=== PATIENT | female | born 1955 | race Caucasian/White ===

== ENCOUNTER 2021-03-16 13:01 | Outpatient (CLI) | payer MEDICARE, OTHER | END 2021-03-16 13:02 | disposition home or self-care (01) | LOC: CSHMAMMO 13:01 | PROVIDERS: ATTEND Family Medicine | DX: Z12.31 Encounter for screening mammogram for malignant neoplasm of breast (principal); Z91.89 Other specified personal risk factors, not elsewhere classified; Z98.890 Other specified postprocedural states | CPT/HCPCS: 77063; 77067 ==

== ENCOUNTER 2023-10-31 08:34 | Outpatient (CLI) | payer MEDICARE, OTHER | END 2023-10-31 08:35 | disposition home or self-care (01) | LOC: CSHRAD 08:34 | PROVIDERS: ATTEND Specialist | DX: E66.01 Morbid (severe) obesity due to excess calories (principal); Z98.84 Bariatric surgery status | CPT/HCPCS: 36415; 74246; 80053; 80061; 82306; 83036; 83540; 83970; 84425; 85025 ==

== ENCOUNTER 2024-04-16 12:05 | Outpatient (CLI) | payer MEDICARE, OTHER ==
[2024-04-16 14:05] LABS: Hematocrit 38.9 % (34.9-44.5); Hemoglobin 12.4 g/dL (12.0-15.5); Mean Corpuscular HGB CONC 31.9 g/dL (32.0-36.0); Mean Corpuscular Hemoglobin 28.6 pg (27.0-33.0); Mean Corpuscular Volume 89.6 fL (81.6-98.3); Mean Platelet Volume 9.9 fL (7.4-10.4); Platelet Count 151 10x3/uL (150-450); RBC Distribution Width 15.7 % (11.5-14.5); Red Blood Cell (RBC) Count 4.34 10x6/uL (3.90-5.03); White Blood Cell (WBC) Count 5.61 10x3/uL (3.5-10.5)
[2024-04-16 14:19] LABS: Anion Gap 18 mmol/L (10-20); BUN (Urea Nitrogen) 19 mg/dL (9.8-20.1); Calc. Creatinine Clearance 0 mL/min (70-130); Calcium 9.9 mg/dL (7.8-10.44); Carbon Dioxide 23 mmol/L (23-31); Chloride 104 mmol/L (98-107); Estimated GFR 88; Glucose 88 mg/dL (80-115); Potassium 3.9 mmol/L (3.5-5.1); Sodium 141 mmol/L (136-145)
== END 2024-04-16 12:06 | disposition home or self-care (01) ==
LOC: CSHLAB 12:05
PROVIDERS: ATTEND Specialist
DX: Z01.818 Encounter for other preprocedural examination (principal)
CPT/HCPCS: 80048; 85027; 93005; 93010

== ENCOUNTER → 2024-04-21 | Day surgery (SDC) | payer MEDICARE, OTHER ==
[2024-04-16 12:25] VITALS: BMI 23.7
[~2024-04-21] MED LIST: Acetaminophen 500 MG TAB ONE; Bupivacaine/Epinephrine 0.25% 30 ML VIAL ONE; CEFAZOLIN 1 GM VIAL ONE; Dexamethasone 20 MG/5 ML VIAL ONE; Fentanyl 100 MCG/2 ML VIAL ONE; Fentanyl 250 MCG/5 ML VIAL ONE; Ketorolac Tromethamine 30 MG (1 mL) VIAL ONE; Lidocaine 1% PF 5 ML VIAL ONE; Midazolam HCl 2 mg/2 ml Vial ONE; PROPOFOL 20 ML ONE; Phenylephrine 40 MG/NS 250 ML 250 ML ONE; Rocuronium Bromide 10 MG/ML (10ML VIAL) ONE; SUGAMMADEX SODIUM 200 MG/2 ML VIAL ONE
== END ==
LOC: CSHSDC 09:56
PROVIDERS: ATTEND Specialist
PROC: 0JB80ZZ Excision of Abdomen Subcutaneous Tissue and Fascia, Open Approach (ICD-10-PCS; principal; 2024-04-21)
DX: M79.3 Panniculitis, unspecified (principal); M48.02 Spinal stenosis, cervical region; G47.33 Obstructive sleep apnea (adult) (pediatric); K43.9 Ventral hernia without obstruction or gangrene; E66.01 Morbid (severe) obesity due to excess calories; Z68.23 Body mass index [BMI] 23.0-23.9, adult; Z98.84 Bariatric surgery status; Z86.73 Personal history of transient ischemic attack (TIA), and cerebral infarction without residual deficits; Z90.49 Acquired absence of other specified parts of digestive tract; Z90.710 Acquired absence of both cervix and uterus; Z88.8 Allergy status to other drugs, medicaments and biological substances; Z88.1 Allergy status to other antibiotic agents; Z88.2 Allergy status to sulfonamides; Z79.899 Other long term (current) drug therapy
CPT/HCPCS: 15830; 71045; A6258; J0690; J1100; J1885; J2250; J2704; J3010 ×2; 88305

== ENCOUNTER 2024-12-23 19:13 | Inpatient (IN) | payer MEDICARE, OTHER ==
[2024-12-23] MEDS ORDERED: Albuterol 2.5 MG (3 mL) NEB ONE (20:21)
[2024-12-23] MEDS ORDERED: Acetaminophen 500 MG TAB ONE (20:44)
[2024-12-23] MEDS ORDERED: cefTRIAXone (ROCEPHIN) 1 GM VIAL ONE (20:45)
[2024-12-23 21:06] LABS: #Basophils Less than 0.03 10x3/uL (0.0-0.2); #Eosinophils 0.12 10x3/uL (0.0-0.5); #Monocytes 0.22 10x3/uL (0.0-1.1); #Neutrophils 3.98 10x3/uL (1.5-8.4); %Basophils 0.2 % (0.0-2.0); %Eosinophils 2.6 % (0.0-6.0); %Lymphocytes 6.8 % (18.0-47.0); %Monocytes 4.7 % (0.0-10.0); %Neutrophils 85.1 % (40.0-75.0); Hematocrit 32.4 % (34.9-44.5); Hemoglobin 10.9 g/dL (12.0-15.5); Mean Corpuscular Hemoglobin 28.8 pg (27.0-33.0); Mean Corpuscular Volume 85.7 fL (81.6-98.3); Platelet Count 92 10x3/uL (150-450); Red Blood Cell (RBC) Count 3.78 10x6/uL (3.90-5.03); White Blood Cell (WBC) Count 4.68 10x3/uL (3.5-10.5)
[2024-12-23 21:24] LABS: ALT (SGPT) 38 U/L (Less than 34); AST (SGOT) 52 U/L (11-34); Albumin 3.2 g/dL (3.1-4.5); Alkaline Phosphatase 74 U/L (40-110); Anion Gap 13 mmol/L (10-20); BUN (Urea Nitrogen) 23 mg/dL (9.8-20.1); Bilirubin, Total 0.6 mg/dL (0.3-1.2); Calc. Creatinine Clearance 0 mL/min (70-130); Calcium 8.5 mg/dL (7.8-10.44); Carbon Dioxide 21 mmol/L (23-31); Chloride 106 mmol/L (98-107); Globulin 3.0 g/dL (2.4-3.5); Glucose 165 mg/dL (83-110); Potassium 3.5 mmol/L (3.5-5.1); Sodium 136 mmol/L (136-145)
[2024-12-23 21:28] LABS: Troponin I Less than 0.010 ng/mL (< 0.028)
[2024-12-23 21:39] LABS: Platelet Adequacy Comment Appears Decreased; RBC Morphology Within Normal Limits
[2024-12-23 22:06] LABS: Glucose, Urine (Dipstick) Normal (Negative); Leukocyte Negative (Negative); Protein, Urine (Dipstick) 100 mg/dl (Neg-Trace); Specific Gravity, Urine 1.015 (1.005-1.030)
[2024-12-23 22:24] LABS: Bacteria/HPF None Seen HPF (None Seen); CAUTI Indications for Culture Alt mental st,lethar; RBC/HPF 0-3 HPF (0-3); WBC/HPF None Seen HPF (0-3)
[2024-12-23 22:25] LABS: Urine Culture Reflex No No
[2024-12-23 22:38] LABS: ALV-art Gradient 88.415 mmHg (0-20); Actual Bicarbonate (HCO3a) 19.1 mEq/L (22-28); Analyzer IN Cardio CS ER; Base Excess (BEa) -4.1 mEq/L (-2.0 to +3.0); CO2 Tension 29.3 mmHg (35.0-45.0); Calcium, Ionized (arterial) 1.16 mmol/L (1.12-1.30); Critical Notified By: CP.PH; Hematocrit-ABG 34 % (36.0-47.0); Hemoglobin (Hb) 11.6 g/dL (12.0-16.0); O2 Tension (PaO2), arterial 74.6 mmHg (> 70.0); Potassium - ABG Lab 3.44 mmol/L (3.70-5.30); Puncture Site Right Radial artery; RapidComm Collect By CP.PH; pH, Arterial 7.433 (7.35-7.45)
[2024-12-23] MEDS ORDERED: Albuterol 200 PUFF (6.7GM INHALER) INH PRN (22:41)
[2024-12-23] MEDS ORDERED: Acetaminophen 325 MG TAB PO PRN (22:41)
[2024-12-24] MEDS: cefTRIAXone\\ROCEPHIN 1 GM in Sodium Chloride 0.9% 100 ML IVPB SCH (00:07)
[2024-12-24] MEDS: Aspirin 81 mg Enteric Coated Tablet PO SCH ×2 (00:07→10:18)
[2024-12-24 00:13] LABS: Hematocrit 30.8 % (34.9-44.5); Hemoglobin 10.1 g/dL (12.0-15.5); Mean Corpuscular Hemoglobin 28.9 pg (27.0-33.0); Mean Corpuscular Volume 88.3 fL (81.6-98.3); Platelet Count 72 10x3/uL (150-450); Red Blood Cell (RBC) Count 3.49 10x6/uL (3.90-5.03); White Blood Cell (WBC) Count 3.99 10x3/uL (3.5-10.5)
[2024-12-24 00:15] LABS: MDiff Complete? YES; Platelet Adequacy Comment Appears Decreased; RBC Morphology Within Normal Limits
[2024-12-24 00:19] LABS: Anion Gap 9 mmol/L (10-20); BUN (Urea Nitrogen) 21 mg/dL (9.8-20.1); Calc. Creatinine Clearance 0 mL/min (70-130); Calcium 7.8 mg/dL (7.8-10.44); Carbon Dioxide 20 mmol/L (23-31); Chloride 109 mmol/L (98-107); Glucose 178 mg/dL (83-110); Magnesium 1.4 mg/dL (1.6-2.6); Potassium 3.2 mmol/L (3.5-5.1)
[2024-12-24 00:30] LABS: Sodium 135 mmol/L (136-145)
[2024-12-24] MEDS: REMDESIVIR 200 MG in Sodium Chloride 0.9% 250 ML 210 ML IV SCH (00:54)
[2024-12-24 01:06] VITALS: BMI 21.2
[2024-12-24] MEDS ORDERED: FLU (Fluad Triv) 25-26 (65UP)PF 45 MCG/0.5 ML Syringe IM ONE ×2 (01:30→09:00)
[2024-12-24] MEDS ORDERED: PNEUMOC 20-VAL CONJ-DIP CRM/PF 0.5 ML SYRINGE IM ONE ×2 (01:30→09:00)
[2024-12-24] MEDS: HYDROcodone/Acetaminophen 5/325 mg Tablet PO PRN (01:32)
[2024-12-24] MEDS: Benzonatate 100 MG CAP PO PRN (02:27)
[2024-12-24] MEDS: Azithromycin 500 MG in Sodium Chloride 0.9% 250 ML 250 ML IVPB SCH (02:27)
[2024-12-24] MEDS ORDERED: Acetaminophen 325 MG TAB PO PRN (04:19)
[2024-12-24] MEDS: Magnesium 2 GM/50 ML(in water) 2 GM in Premix 1 BAG IVPB SCH (05:06)
[2024-12-24] MEDS: oxyCODONE 5 MG TAB PO PRN (06:25)
[2024-12-24 07:41] LABS: Hematocrit 31.9 % (34.9-44.5); Hemoglobin 10.1 g/dL (12.0-15.5); Mean Corpuscular Hemoglobin 28.6 pg (27.0-33.0); Mean Corpuscular Volume 90.4 fL (81.6-98.3); Platelet Count 75 10x3/uL (150-450); Red Blood Cell (RBC) Count 3.53 10x6/uL (3.90-5.03); White Blood Cell (WBC) Count 4.77 10x3/uL (3.5-10.5)
[2024-12-24 07:59] LABS: INR-International Normal Ratio 1.6; PTT 29.5 sec (22.0-33.0); Prothrombin Time 16.0 sec (9.5-12.1)
[2024-12-24 08:00] LABS: Anion Gap 11 mmol/L (10-20); BUN (Urea Nitrogen) 20 mg/dL (9.8-20.1); Calc. Creatinine Clearance 67 mL/min (70-130); Calcium 8.1 mg/dL (7.8-10.44); Carbon Dioxide 19 mmol/L (23-31); Chloride 113 mmol/L (98-107); Glucose 203 mg/dL (83-110); Magnesium 2.2 mg/dL (1.6-2.6); Potassium 4.1 mmol/L (3.5-5.1); Sodium 139 mmol/L (136-145)
[2024-12-24] MEDS: Calcium Carbonate 600 MG + Vit D TAB PO SCH (10:18)
[2024-12-24] MEDS: Multivitamin W/ Minerals 1 TAB PO SCH (10:18)
[2024-12-24] MEDS: Cholecalciferol (Vitamin D3) 400 UNITS TAB PO SCH (10:19)
[2024-12-24] MEDS: Enoxaparin 30 MG (0.3 mL) SYRINGE SC SCH (10:19)
[2024-12-24] MEDS: cefTRIAXone\\ROCEPHIN 2 GM in Sodium Chloride 0.9% 100 ML IVPB SCH (21:26)
[2024-12-24] MEDS: oxyCODONE 5 MG TAB PO SCH (21:27)
[2024-12-24] MEDS: Pantoprazole 40 MG DR.TAB PO SCH (21:28)
[2024-12-24] MEDS: Rosuvastatin 20 MG TAB PO SCH (21:28)
[2024-12-24] MEDS: Sertraline 100 MG TAB PO SCH (21:28)
[2024-12-25] MEDS: REMDESIVIR 100 MG in Sodium Chloride 0.9% 250 ML 230 ML IV SCH (00:28)
[2024-12-25 05:09] LABS: Platelet Count 101 10x3/uL (150-450)
[2024-12-25 05:10] LABS: Hematocrit 32.8 % (34.9-44.5); Hemoglobin 10.7 g/dL (12.0-15.5); Mean Corpuscular Hemoglobin 28.4 pg (27.0-33.0); Mean Corpuscular Volume 87.0 fL (81.6-98.3); Red Blood Cell (RBC) Count 3.77 10x6/uL (3.90-5.03); White Blood Cell (WBC) Count 6.44 10x3/uL (3.5-10.5)
[2024-12-25 05:16] LABS: Anion Gap 10 mmol/L (10-20); BUN (Urea Nitrogen) 25 mg/dL (9.8-20.1); Calc. Creatinine Clearance 81 mL/min (70-130); Calcium 8.7 mg/dL (7.8-10.44); Carbon Dioxide 18 mmol/L (23-31); Chloride 114 mmol/L (98-107); Glucose 115 mg/dL (83-110); Potassium 4.2 mmol/L (3.5-5.1); Sodium 138 mmol/L (136-145)
[2024-12-25 05:18] LABS: ALT (SGPT) 35 U/L (Less than 34); AST (SGOT) 47 U/L (11-34); Albumin 2.7 g/dL (3.1-4.5); Alkaline Phosphatase 56 U/L (40-110); Bilirubin, Direct 0.1 mg/dL (0.1-0.3); Bilirubin, Total 0.2 mg/dL (0.3-1.2)
[2024-12-25 05:23] LABS: MDiff Complete? YES; Platelet Adequacy Comment Appears Decreased; RBC Morphology Within Normal Limits
[2024-12-25] MEDS: Enoxaparin 40 MG (0.4 mL) SYRINGE SC SCH (10:10)
[2024-12-25 14:42] VITALS: BP 122/68; TEMP 98.2
== END 2024-12-25 16:34 | disposition home or self-care (01) | DRG 177 ==
LOC: CSHERS 19:13 → CSHTELE 22:13
PROVIDERS: ADMIT Family Medicine; ATTEND Family Medicine
PROC: XW033E5 Introduction of Remdesivir Anti-infective into Peripheral Vein, Percutaneous Approach, New Technology Group 5 (ICD-10-PCS; principal; 2024-12-23)
PROC: 3E03329 Introduction of Other Anti-infective into Peripheral Vein, Percutaneous Approach (ICD-10-PCS; 2024-12-23)
PROC: 3E0234Z Introduction of Serum, Toxoid and Vaccine into Muscle, Percutaneous Approach (ICD-10-PCS; 2024-12-24)
PROC: 3E02340 Introduction of Influenza Vaccine into Muscle, Percutaneous Approach (ICD-10-PCS; 2024-12-24)
DX: U07.1 COVID-19 (principal); J12.82 Pneumonia due to coronavirus disease 2019; J15.9 Unspecified bacterial pneumonia; J96.01 Acute respiratory failure with hypoxia; E78.5 Hyperlipidemia, unspecified; F32.A Depression, unspecified; D69.6 Thrombocytopenia, unspecified; F41.9 Anxiety disorder, unspecified; Z86.73 Personal history of transient ischemic attack (TIA), and cerebral infarction without residual deficits; Z98.890 Other specified postprocedural states; Z88.2 Allergy status to sulfonamides; Z88.8 Allergy status to other drugs, medicaments and biological substances; Z23 Encounter for immunization
CPT/HCPCS: 36415; 36600; 71045; 71250; 80048; 80053; 80076; 81001; 82805; 83605; 83735; 83880; 84484; 85025; 85027; 85610; 85730; 86140; 87040; 87428; 93005; 93010; 94640; 94760; 94762; 96361; 96365; 96375; J0248; J0456; J0696; J1100; J1650; J2919; J3475; J7050; J7120; J7611